=== PATIENT | male | born 1990 | race African-American/Black ===

== ENCOUNTER 2023-08-29 17:21 | Emergency (ER) | payer MEDICAID ==
[~2023-08-29] VITALS: Ht 170.2 cm; Wt 97.0 kg
[2023-08-29 17:35] VITALS: O2SAT 97
[2023-08-29] MEDS ORDERED: NAPR-681 MT (18:24)
[2023-08-29 18:56] VITALS: BP 141/85; PULSE 77; RESP 18; TEMP 98.1
== END 2023-08-29 19:19 | disposition home or self-care (01) ==
LOC: ER 17:21
DX: S63.502A Unspecified sprain of left wrist, initial encounter (principal); V89.2XXA Person injured in unspecified motor-vehicle accident, traffic, initial encounter; Y93.89 Activity, other specified; Y92.89 Other specified places as the place of occurrence of the external cause; Y99.8 Other external cause status
CPT/HCPCS: 73100; 99283